=== PATIENT | female | born 1975 ===

== ENCOUNTER 2020-05-08 07:00 | Inpatient (IN) | payer OTHER ==
[~2020-05-08] VITALS: Ht 160 cm; Wt 72.6 kg
== END 2020-05-17 15:25 | disposition home or self-care (01) | DRG 743 ==
LOC: O/R 05-14 07:00 → OB/GYN 05-14 11:35 → O/R 05-14 11:35 → OB/GYN 05-14 20:04
PROVIDERS: ADMIT Obstetrics & Gynecology; ATTEND Obstetrics & Gynecology
PROC: 0UB70ZZ Excision of Bilateral Fallopian Tubes, Open Approach (ICD-10-PCS; 2020-05-14)
PROC: 0UT90ZZ Resection of Uterus, Open Approach (ICD-10-PCS; principal; 2020-05-14 08:30)
DX: D25.1 Intramural leiomyoma of uterus (principal); D25.2 Subserosal leiomyoma of uterus; N93.8 Other specified abnormal uterine and vaginal bleeding; N83.8 Other noninflammatory disorders of ovary, fallopian tube and broad ligament